=== PATIENT | female | born 1950 | race Caucasian/White ===

== ENCOUNTER 2017-03-31 07:36 | Outpatient (CLI) | payer OTHER ==
--- NOTE | 2017-04-01 17:14 | Mammography Report ---
DIGITAL SCREENING MAMMOGRAM: 03/31/2017 CLINICAL INDICATION: A 66-year-old, for screening. COMPARISON: 10/2014, 07/2013, 11/2010, 06/2009. TECHNIQUE: Routine CC and MLO projections were obtained of the breasts. FINDINGS: Scattered fibroglandular tissue is present within the breasts. There are no dominant héctor s, suspicious microcalcifications, or secondary signs of malignancy. In comparison to the previous st udies, there are no significant changes. ASSESSMENT: NO MAMMOGRAPHIC EVIDENCE OF MALIGNANCY. NO SIGNIFICANT INTERVAL CHANGES. RECOMMENDATION: Screening mammography is recommended annually. BIRADS category 1 - negative. STANDARD QUALIFYING STATEMENTS 1. This examination was reviewed with the aid of Computed-Aided Detection (CAD). 2. A negative or benign imaging report should not delay biopsy if clinically suspicious findings are present. Consider surgical consultation if warranted. More than 5% of cancers are not identified by i maging. 3. Dense breasts may obscure an underlying neoplasm. JOB #: [id number] EXT JOB #:[id number]
== END 2017-03-31 07:37 | disposition home or self-care (01) ==
LOC: DI 07:36
PROVIDERS: ATTEND Physician Assistant
DX: Z12.31 Encounter for screening mammogram for malignant neoplasm of breast (principal)
CPT/HCPCS: 77067

== ENCOUNTER 2017-04-13 11:39 | Outpatient (CLI) | payer OTHER ==
--- NOTE | 2017-04-13 13:19 | XRAY Report ---
THREE-VIEW RIGHT KNEE: 04/13/2017 CLINICAL INDICATION: Pain, swelling. FINDINGS: Frontal, lateral, sunrise views of the right knee demonstrate mild osteoarthritis, with ti ny osteophytes. There is no evidence of a fracture or dislocation. No effusion is present. IMPRESSION: MILD OSTEOARTHRITIS. JOB #: [id number] EXT JOB #:[id number]
== END 2017-04-13 11:40 | disposition home or self-care (01) ==
LOC: DI 11:39
PROVIDERS: ATTEND Physician Assistant
DX: M17.11 Unilateral primary osteoarthritis, right knee (principal)

== ENCOUNTER 2020-05-15 14:18 | Outpatient (CLI) | payer OTHER ==
--- NOTE | 2020-05-15 16:05 | DEXA Report ---
PROCEDURE: Dexa Spine and/or Hip INDICATIONS: POSTMENOPAUSAL TECHNIQUE: Dual energy x-ray absorptiometry (DXA) was performed on a [employer] System. Regions measur ed are the AP Spine, femoral neck, and if needed forearm. COMPARISON: None. FINDINGS: Lumbar Spine: Bone Mineral Density 1.138 g/cm/cm,T score -0.3, normal Left Hip: Bone Mineral Density 0.909 g/cm/cm,T score -0.8, normal Left Femoral Neck: Bone Mineral Density 0.893 g/cm/cm, T score -1.0, normal (T score greater or equal to -1.0: NORMAL) (T score from -1.1 to -2.4: OSTEOPENIA) (T score less than or equal to -2.5 to: OSTEOPOROSIS) Impression: Normal bone mineral density through the lumbosacral line, left hip overall, and left femo ral neck. Patients with diagnosis of osteoporosis or osteopenia should have regular bone mineral density assess ment. For those eligible for Medicare, routine testing is allowed once every 2 years. Testing frequ ency can be increased for patients who have rapidly progressing disease or for those who are receivin g medical therapy to restore bone mass. Reviewed by: Tahir Quintero MD on 05/15/2020 4:04 PM PST Approved by: Tahir Quintero MD on 05/15/2020 4:04 PM PST Station ID: [id number]
== END 2020-05-15 14:19 | disposition home or self-care (01) ==
LOC: DI 14:18
PROVIDERS: ATTEND Physician Assistant
DX: Z78.0 Asymptomatic menopausal state (principal)
CPT/HCPCS: 77080

== ENCOUNTER 2020-05-15 14:21 | Outpatient (CLI) | payer OTHER ==
--- NOTE | 2020-05-16 13:53 | Mammography Report ---
BILATERAL DIGITAL SCREENING MAMMOGRAM 3D/2D: 05/15/2020 CLINICAL: Routine screening. Comparison is made to exams dated: 01/16/2017 mammogram and 05/09/2015 mammogram - [facility]. There are scattered fibroglandular elements in both breasts. No significant masses, calcifications, or other findings are seen in either breast. There has been no significant interval change. IMPRESSION: NEGATIVE There is no mammographic evidence of malignancy. A 1 year screening mammogram is recommended. This exam was interpreted at Station ID: [id number]. NOTE: For mammograms, a report in lay terms will be sent to the patient. Approximately 15% of breast malignancies will not be visualized mammographically. In the management of a palpable breast mass, a negative mammogram must not discourage biopsy of a clinically suspicious lesion. Electronically Signed By: Isaiah healy/valerie:05/15/2020 17:24:18 ACR BI-RADS Category 1: Negative 3341F PARENCHYMAL PATTERN: (A) - The breast(s) demonstrate(s) scattered fibroglandular densities. BI-RADS CATEGORY: (1) - 1 RECOMMENDATION: (ANNUAL) - Recommend routine annual screening mammography. [id number] 1 year screening LATERALITY: (B)
== END 2020-05-15 14:22 | disposition home or self-care (01) ==
LOC: DI 14:21
PROVIDERS: ATTEND Physician Assistant
DX: Z12.31 Encounter for screening mammogram for malignant neoplasm of breast (principal)
CPT/HCPCS: 77063; 77067

== ENCOUNTER 2020-10-02 07:36 | Outpatient (CLI) | payer OTHER ==
[2020-10-02 15:03] LABS: BASOPHILS # (AUTO) 0.1 10^3/uL (0.0-0.1); BASOPHILS % (AUTO) 1.2 %; EOSINOPHILS # (AUTO) 0.2 10^3/uL (0.0-0.7); EOSINOPHILS % (AUTO) 2.9 %; HCT - HEMATOCRIT 44.4 % (37.0-47.0); HGB - HEMOGLOBIN 14.2 g/dL (12.0-16.0); LYMPHOCYTES # (AUTO) 1.8 10^3/uL (1.5-3.5); LYMPHOCYTES % (AUTO) 35.4 %; MEAN CORPUSCULAR HEMOGLOBIN 30.1 pg (27.0-31.0); MEAN CORPUSCULAR VOLUME 94.3 fL (81.0-99.0); MEAN PLATELET VOLUME 11.2 fL (7.9-10.8); MONOCYTES # (AUTO) 0.5 10^3/uL (0.0-1.0); MONOCYTES % (AUTO) 9.6 %; NEUTROPHILS # (AUTO) 2.6 10^3/uL (1.5-6.6); NEUTROPHILS % (AUTO) 50.7 %; PLT - PLATELET COUNT 215 10^3/uL (130-450); RED BLOOD COUNT 4.71 10^6/uL (4.20-5.40); RED CELL DISTRIBUTION WIDTH 13.2 % (12.0-15.0); WHITE BLOOD COUNT 5.1 x10^3/uL (4.8-10.8)
[2020-10-02 15:28] LABS: ALBUMIN/GLOBULIN RATIO 1.4 (1.0-2.2); ALKALINE PHOSPHATASE 59 IU/L (42-121); ALT ALANINE AMINOTRANSFERASE 25 IU/L (10-60); AST ASPARTATE AMINOTRANSFERASE 24 IU/L (10-42); BILIRUBIN,TOTAL 0.7 mg/dL (0.2-1.0); BUN - BLOOD UREA NITROGEN 14 mg/dL (6-20); CALCIUM 8.9 mg/dL (8.5-10.3); CARBON DIOXIDE - CO2 21 mmol/L (21-32); CHLORIDE 107 mmol/L (101-111); CHOL/HDL RATIO 3.1 (<4.4); CHOLESTEROL 168 mg/dL; CK- CREATINE KINASE 91 IU/L (22-269); CREATININE 0.6 mg/dL (0.4-1.0); GFR - MDRD 99 (>89); GLUCOSE 111 mg/dL (70-100); HDL CHOLESTEROL 55 mg/dL; LDL CHOLESTEROL,CALCULATED 94 mg/dL; LDL/HDL RATIO 1.7 (<4.4); POTASSIUM 4.1 mmol/L (3.5-5.0); SODIUM 139 mmol/L (135-145); TOTAL PROTEIN 6.8 g/dL (6.7-8.2); TRIGLYCERIDES 93 mg/dL; VLDL CHOLESTEROL 19 mg/dL
[2020-10-03 12:37] LABS: HEPATITIS C ANTIBODY NON-REACTIVE (NON-REACTIVE)
== END 2020-10-02 07:37 | disposition home or self-care (01) ==
LOC: LAB.S 07:36
PROVIDERS: ATTEND Internal Medicine
DX: I10 Essential (primary) hypertension (principal); E78.5 Hyperlipidemia, unspecified; Z79.899 Other long term (current) drug therapy; Z11.59 Encounter for screening for other viral diseases; J30.2 Other seasonal allergic rhinitis; Z13.6 Encounter for screening for cardiovascular disorders
CPT/HCPCS: 36415; 80053; 80061; 82550; 83721; 84443; 85025; 86803

== ENCOUNTER 2022-04-08 13:31 | Outpatient (CLI) | payer MEDICARE ==
--- NOTE | 2022-04-09 10:15 | Mammography Report ---
BILATERAL DIGITAL SCREENING MAMMOGRAM 3D/2D: 04/08/2022 CLINICAL: Routine screening. Comparison is made to exams dated: 05/15/2020 mammogram, 01/16/2017 mammogram, 05/09/2015 mammogram, a nd 04/07/2013 mammogram - [facility]. There are scattered areas of fibroglandular density in both breasts (category b / 25%-50% glandular t issue). No significant masses, calcifications, or other findings are seen in either breast. There has been no significant interval change. IMPRESSION: NEGATIVE There is no mammographic evidence of malignancy. A 1 year screening mammogram is recommended. Based on the Tyrer Cuzick model (a risk assessment model) the patients lifetime risk is 7.0% and her 10 year risk is 4.4%. According to the ACR, ACS, and NCCN guidelines, an annual breast MRI exam evelio g with mammogram is recommended if the patients lifetime risk is 20% or greater. This exam was interpreted at Station ID: [id number]. NOTE: For mammograms, a report in lay terms will be sent to the patient. Approximately 15% of breast malignancies will not be visualized mammographically. In the management of a palpable breast mass, a negative mammogram must not discourage biopsy of a clinically suspicious lesion. Electronically Signed By: David allison/valerie:04/08/2022 17:21:03 ACR BI-RADS Category 1: Negative 3341F PARENCHYMAL PATTERN: (A) - The breast(s) demonstrate(s) scattered fibroglandular densities. BI-RADS CATEGORY: (1) - 1 RECOMMENDATION: (ANNUAL) - Recommend routine annual screening mammography. [id number] 1 year screening LATERALITY: (B)
== END 2022-04-08 13:32 | disposition home or self-care (01) ==
LOC: DI 13:31
PROVIDERS: ATTEND Internal Medicine
DX: Z12.31 Encounter for screening mammogram for malignant neoplasm of breast (principal)

== ENCOUNTER 2023-01-14 06:56 | Day surgery (SDC) | payer MEDICARE ==
[2023-01-14] MEDS ORDERED: LACTATED RINGERS 1,000 ML IV ONE ×2 (06:58→08:35)
--- NOTE | 2023-01-14 07:10 | ANESTHESIA ---
Pre-Anesthesia VS, & Labs - Diagnosis screening - Procedure colonoscopy Height: 5 ft 5 in Weight (kg): 73 kg Body Mass Index: 26.7 BMI Classification: Overweight - NPO >8 hours Last Fluid Intake: am prep - Is Patient ?: No - Lab Results Lab results reviewed: Yes Home Medications and Allergies Home Medications: Ambulatory Orders Lisinopril [Zestril] 20 mg PO DAILY 01/13/23 Multivitamin 1 each PO DAILY 01/13/23 Pravastatin [Pravachol] 40 mg PO DAILY 01/13/23 Lisinopril [Zestril] 20 mg PO DAILY 01/13/23 Multivitamin 1 each PO DAILY 01/13/23 Pravastatin [Pravachol] 40 mg PO DAILY 01/13/23 Allergies/Adverse Reactions: Allergies Allergy/AdvReac Type Severity Reaction Status Date / Time No Known Drug Allergies Allergy Verified 01/13/23 13:39 Anes History & Medical History - Anesthetic History Anesthesia Complications: reports: No previous complications Family history of Anesthesia Complications: Denies Family history of Malignant Hyperthermia: Denies - Medical History Cardiovascular: reports: Hypertension, High cholesterol Psychosocial: reports: Alcohol (social) History of Cancer?: No - Surgical History General: reports: Colonoscopy Eyes Ears Nose Throat (EENT): reports: Tonsil/Adenoidectomy Exam General: Alert, Oriented x3, Cooperative Dental: WNL Mouth Openin Fingerbreadth Neck Mobility: Normal Mallampati classification: II Thyromental Distance: less than 4 cm Respiratory: Lungs clear, Normal breath sounds, No respiratory distress Cardiovascular: Regular rate (one PVC on tele strip) Neurological: Normal speech Mental/Cognitive Status: Alert/Oriented X3, Normal for patient Cognitive Status: Within normal limits Plan Anesthesia Type: Total IV Consent for Procedure(s) Verified and Reviewed: Yes Code Status: Attempt Resuscitation ASA classification: 2-Mild systemic disease Is this case an emergency?: No
[2023-01-14] MEDS ORDERED: PROPOFOL 500 MG/50 ML 500 MG/50 ML VIAL ONE (08:05)
--- NOTE | 2023-01-14 09:00 | ANESTHESIA POST OP EVALUATION ---
Anesthesia Post Eval - Post Anesthesia Eval Vitals: Last Vital Signs Temp 36.0 C L 01/14/23 08:49 Pulse 66 01/14/23 08:49 Resp 16 01/14/23 08:49 BP 114/67 01/14/23 08:49 Pulse Ox 100 01/14/23 08:49 O2 Flow Rate CV Function Including HR & BP: Stable Pain Control: Satisfactory Nausea & Vomiting: Negative Mental Status: Baseline Respiratory Status: Airway Patent Hydration Status: Satisfactory Anesthesia Complications: None
[2023-01-14 09:13] VITALS: BP 138/89
== END 2023-01-14 06:57 | disposition home or self-care (01) ==
LOC: SDS 06:56
PROVIDERS: ATTEND Surgery
DX: Z12.11 Encounter for screening for malignant neoplasm of colon (principal); K64.1 Second degree hemorrhoids; Z87.891 Personal history of nicotine dependence
CPT/HCPCS: G0121; J7120

== ENCOUNTER 2024-02-24 08:55 | Outpatient (CLI) | payer MEDICARE ==
[2024-02-24 13:59] LABS: BASOPHILS # (AUTO) 0.1 10^3/uL (0.0-0.1); BASOPHILS % (AUTO) 1.4 %; EOSINOPHILS # (AUTO) 0.2 10^3/uL (0.0-0.7); EOSINOPHILS % (AUTO) 4.8 %; HCT - HEMATOCRIT 42.8 % (37.0-47.0); HGB - HEMOGLOBIN 13.9 g/dL (12.0-16.0); LYMPHOCYTES # (AUTO) 1.6 10^3/uL (1.5-3.5); MEAN CORPUSCULAR HEMOGLOBIN 30.2 pg (27.0-31.0); MEAN CORPUSCULAR HGB CONC 32.5 g/dL (32.0-36.0); MEAN PLATELET VOLUME 10.8 fL (7.9-10.8); MONOCYTES # (AUTO) 0.4 10^3/uL (0.0-1.0); MONOCYTES % (AUTO) 7.8 %; NEUTROPHILS # (AUTO) 2.8 10^3/uL (1.5-6.6); NEUTROPHILS % (AUTO) 54.8 %; PLT - PLATELET COUNT 198 10^3/uL (130-450); RED CELL DISTRIBUTION WIDTH 13.3 % (12.0-15.0)
[2024-02-24 14:02] LABS: ALBUMIN/GLOBULIN RATIO 1.4 (1.0-2.2); ALKALINE PHOSPHATASE 58 IU/L (42-121); ALT ALANINE AMINOTRANSFERASE 12 IU/L (10-60); AST ASPARTATE AMINOTRANSFERASE 17 IU/L (10-42); BILIRUBIN,TOTAL 0.5 mg/dL (0.2-1.0); BUN - BLOOD UREA NITROGEN 17 mg/dL (6-20); CARBON DIOXIDE - CO2 27 mmol/L (21-32); CHLORIDE 107 mmol/L (101-111); CHOL/HDL RATIO 2.4 (<4.4); CHOLESTEROL 160 mg/dL; CREATININE 0.6 mg/dL (0.6-1.3); GFR - MDRD 98 (>89); GLUCOSE 92 mg/dL (74-104); HDL CHOLESTEROL 66 mg/dL; LDL CHOLESTEROL,CALCULATED 82 mg/dL; LDL/HDL RATIO 1.2 (<4.4); POTASSIUM 3.9 mmol/L (3.5-4.5); SODIUM 139 mmol/L (135-145); TOTAL PROTEIN 6.9 g/dL (6.4-8.9); TRIGLYCERIDES 62 mg/dL; VLDL CHOLESTEROL 12 mg/dL
[2024-02-24 14:20] LABS: THYROID STIMULATING HORMONE 0.93 uIU/mL (0.34-5.60)
[2024-02-24 14:27] LABS: ESTIMATED AVERAGE GLUCOSE 114 mg/dL (70-100); HEMOGLOBIN A1c% 5.6 % (4.27-6.07)
== END 2024-02-24 08:56 | disposition home or self-care (01) ==
LOC: LAB.S 08:55
PROVIDERS: ATTEND Internal Medicine
DX: I10 Essential (primary) hypertension (principal); E78.5 Hyperlipidemia, unspecified; R73.01 Impaired fasting glucose; Z79.899 Other long term (current) drug therapy
CPT/HCPCS: 36415; 80053; 80061; 83036; 83721; 84443; 85025